=== PATIENT | male | born 1975 | race Caucasian/White ===

== ENCOUNTER 2019-01-02 16:20 | Emergency (ER) | payer OTHER ==
[~2019-01-02] VITALS: Ht 167.6 cm; Wt 229.8 kg
[~2019-01-02 16:20] MED LIST: BACL10TA PO; CHOL100018 PO; DESM10SP2 NASAL; FURO40 PO; OMEP20CA4 PO; QUET200T5 PO; QUET300T5 PO; SERT100T12 PO
[2019-01-02] MEDS ORDERED: CIPROFLOXACIN HCL 250 MG TABLET PO ONE (17:30)
[2019-01-02] MEDS ORDERED: FURO80 PO (17:31)
[2019-01-02] MEDS ORDERED: QUET200T5 PO (17:31)
[2019-01-02] MEDS ORDERED: QUET50TA15 PO (17:31)
[2019-01-02 18:45] VITALS: BP 100/56
== END 2019-01-02 19:05 | disposition home or self-care (01) ==
LOC: EMS 16:23
DX: T83.031A Leakage of indwelling urethral catheter, initial encounter (principal); N39.0 Urinary tract infection, site not specified; I11.0 Hypertensive heart disease with heart failure; I50.9 Heart failure, unspecified; E78.00 Pure hypercholesterolemia, unspecified; J44.9 Chronic obstructive pulmonary disease, unspecified; F20.9 Schizophrenia, unspecified; F17.210 Nicotine dependence, cigarettes, uncomplicated; Z79.899 Other long term (current) drug therapy
CPT/HCPCS: 51702